=== PATIENT | male | born 1965 | race Caucasian/White ===

== ENCOUNTER → 2020-09-08 | Outpatient (CLI) | payer SELFPAY ==
[~2020-09-08] MED LIST: CATHETER FLUSH 10 ML SYR IV PRN; HOLD METFORMIN - RECEIVED CONTRAST 20 ML VIAL IV SCH; IOHEXOL 350 MG/ML 100 ML (OMNIPAQUE 350) VIAL IV ONE; NS 100 ML (IVPB) BAG IV ONE
[2020-09-08 12:54] LABS: CREATININE SERUM 1.02 MG/DL (0.60-1.30); GFR ESTIMATED > 60
[2020-09-08 12:55] LABS: BUN/CREATININE RATIO 15
--- NOTE | 2020-09-08 13:54 | Diagnostic Imaging Report ---
EXAMINATION: CT Abdomen and Pelvis with intravenous contrast. TECHNIQUE: Multiple contiguous axial images were obtained through the abdomen and pelvis after the uneventful administration of intravenous contrast. All CT scans use one or more of the following dose optimizing techniques: automated exposure control, MA and/or KvP adjustment based on a patient size and exam type, or iterative reconstruction. HISTORY: Left lower quadrant pain. COMPARISON: None available. FINDINGS: Lung bases: The lung bases are clear. Solid organs: The liver is normal without focal lesion. The gallbladder is normal. There is no biliary ductal dilation. Pancreas is normal. Spleen is normal. Adrenal glands are normal. The kidneys are normal without hydronephrosis. Bowel: The stomach and small bowel are normal without obstruction. There is scattered colonic diverticulosis. The appendix is normal. Peritoneum: There is no intraperitoneal free fluid or free air. No suspicious lymphadenopathy. Vasculature: Normal without aneurysm. Musculoskeletal: No suspicious osseous lesion or compression fracture. Pelvis: The prostate gland is normal. The urinary bladder is normal. IMPRESSION: 1. No acute abnormality in the abdomen or pelvis. 2. Colonic diverticulosis without findings of diverticulitis. Dictated by: Dictated on workstation # [id number]
== END ==
LOC: EDSEX 12:23 → RAD 12:23
PROVIDERS: ATTEND Family Medicine
DX: K57.30 Diverticulosis of large intestine without perforation or abscess without bleeding (principal)
CPT/HCPCS: 36415; 74177; 82565; 84520